=== PATIENT | female | born 1995 | race Caucasian/White ===

== ENCOUNTER 2017-01-08 21:11 | Emergency (ER) | payer OTHER ==
[~2017-01-08] VITALS: Ht 180.3 cm; Wt 100.0 kg
[2017-01-08 21:32] VITALS: BP 113/73; PULSE 72; RESP 12; O2SAT 98
--- NOTE | 2017-01-08 22:30 | DRSVH ---
PROCEDURE: X-RAY RIGHT FOOT COMPLETE, MINIMUM THREE VIEWS ([id number]) INDICATIONS: inj TECHNIQUE: 3 views of the foot were acquired. COMPARISON: None. FINDINGS: Bones: No fractures or dislocations. No suspicious bony lesions. Soft tissues: No tibiotalar joint effusion. Achilles tendon appears normal. IMPRESSION: No acute bony abnormality. Dictated by: Wilber Carranza M.D. on 01/08/2017 at 22:28 Approved by: Wilber Carranza M.D. on 01/08/2017 at 22:28
--- NOTE | 2017-01-08 22:31 | DRSVH ---
PROCEDURE: X-RAY RIGHT ANKLE, MINIMUM THREE VIEWS ([id number]) INDICATIONS: inj TECHNIQUE: 3 views of the ankle were acquired. COMPARISON: None. FINDINGS: Bones: No fractures or dislocations. Ankle mortise is normally aligned. No suspicious bony lesions . Soft tissues: No tibiotalar joint effusion. Achilles tendon appears normal. IMPRESSION: No acute bony abnormality is found in the right ankle. Dictated by: Wilber Carranza M.D. on 01/08/2017 at 22:28 Approved by: Wilber Carranza M.D. on 01/08/2017 at 22:29
--- NOTE | 2017-01-09 00:23 | ED.REPORT ---
HPI-Extremity Problem Lower Date of Service Jan 09, 2017 ED Provider: John Gordon MD The pt is a 21 y/o female presenting the to the ED complaining of R ankle pain. She was playing w/ her dog when she felt it twist, collapse, and heard a crack. Putting weight on it causes her pain. She fractured her R foot last year. Nursing Notes Stated Complaint: POSS BROKEN RIGHT FOOT Chief Complaint: Extremity Trauma Nursing Notes Reviewed: Yes Allergies: Coded Allergies: Penicillins (Verified Allergy, Intermediate, rash, 01/08/17) General Time Seen by MD: 00:01 Chief Complaint Ankle injury right Hx Obtained From: Patient Arrived By: Walk-in Onset Occurred: Just prior to arrival Symptom Duration: Since onset Recent Healthcare: No recent doctor visit, No recent hospitalization Similar Sx Previous: Yes Past Medical History Past Medical History R foot fracture Past Surgical History none reported Smoking History Unknown if Ever Smoker Social History None reported Other Social History: Lives with parents Ambulatory Status Independent Review of Systems Musculoskeletal: Reports: Extremity pain (R foot ), Joint pain (R ankle), Joint swelling (R ankle) Complete sys rev & neg: except as marked. Physical Exam Initial Vital Signs Vital Signs (First) Date Time Temp Pulse Resp B/P Pulse Ox O2 Delivery O2 Flow Rate FiO2 01/08/17 21:32 36.7 72 12 113/73 98 01/09/17 01:00 Room Air Initial VS: Reviewed, Vital signs normal General/Constitutional: Well-developed, Well-nourished Head / Eyes: Atraumatic, Normocephalic, PERRL ENT: Mucous membranes moist, Conjunctiva normal, No scleral icterus Neck: Supple, Non-tender, Full range of motion Respiratory: Breath sounds normal, Clear to auscultation, No respiratory distress Cardiovascular: Regular rate & rhythm, Heart sounds normal, Intact distal pulses Upper Extremities: Vascular intact, Neuro intact, No swelling, No tenderness Skin: Warm, Dry, No cyanosis Neurologic: Alert, Oriented, Nonfocal Psychiatric: Mood/affect normal, Behavior normal, Normal thought content Lower Extremity / Pelvis / MS: Neurologic intact, Vascular intact Ankle / Foot: Neurologic intact, Vascular intact Tender and swollen across top of long arch Interpretation & Diagnostics X-Ray Interpretation Xray Interpretation: IMPRESSION: No acute bony abnormality is found in the right ankle. Dictated by: Wilber Carranza M.D. on 01/08/2017 at 22:28 Approved by: Wilber Carranza M.D. on 01/08/2017 at 22:29 X-Ray Ordered: Ankle right Interpretation / Wet Read by: Interpret - Radiologist Xray Interpretation: IMPRESSION: No acute bony abnormality. Dictated by: Wilber Carranza M.D. on 01/08/2017 at 22:28 Approved by: Wilber Carranza M.D. on 01/08/2017 at 22:28 X-Ray Ordered: Foot right Interpretation / Wet Read by: Interpret - Radiologist Re-Eval/Medical Decision Med Decision/Clinical Course 21-year-old female with a history of healed foot fracture presents after a fall. She felt a snap in her mid foot. X-ray examination is negative for acute injury. She was placed in a cast boot and Garett wrap and will follow-up with her primary doctor. Re-Evaluation/Progress : Time of Eval: 00:20 Re-Evaluation/Progress Note: Pt rechecked. Informed pt of plan for treatment. Pt understands and agrees with plan for treatment. F/U instructions and RTER warnings given. All questions addressed. Counseled Regarding: Diagnosis, Lab results, Need for follow-up, When/why to return to ED Discharge & Departure Impression: Primary Impression: Right foot sprain Encounter type: initial encounter Qualified Code: S93.601A - Unspecified sprain of right foot, initial encounter Disposition: Home Discharge Condition All VS Reviewed: Yes Condition: Improved Patient Instructions: Foot Sprain (ED) Additional Instructions: No x-ray evidence of fracture or dislocation. You appear to have a midfoot sprain. You can walk on it using the cast shoe if comfortable, otherwise use the crutches. Tylenol and/or ibuprofen as needed for pain. It should improve markedly over the next week or so. Follow-up with Dr. Michael as needed for persistent symptoms. Referrals: Too Michael DO [facility] Scribe Attestation Portions of this note were transcribed by Jelani Garcia. I, Dr. Gordon personally performed the history, physical exam and medical decision-making; I reviewed and confirmed the accuracy of the information in the transcribed note. Signed by : Luciana Vaughan, 01/09/17 and 0035. copies to: Too Michael DO; [facility] John Gordon MD Jan 09, 2017 00:23 Jelani Garcia Jan 09, 2017 00:35
[2017-01-09 01:00] VITALS: BP 121/72; PULSE 72; RESP 14; O2SAT 98
== END 2017-01-09 01:10 | disposition home or self-care (01) ==
LOC: SED 21:11
DX: S93.601A Unspecified sprain of right foot, initial encounter (principal); X50.0XXA Overexertion from strenuous movement or load, initial encounter; Y92.009 Unspecified place in unspecified non-institutional (private) residence as the place of occurrence of the external cause; Y93.89 Activity, other specified; Y99.8 Other external cause status; Z87.828 Personal history of other (healed) physical injury and trauma; Z88.0 Allergy status to penicillin